=== PATIENT | male | born 1955 | race Caucasian/White ===

== ENCOUNTER 2018-03-03 12:35 | Inpatient (IN) | payer OTHER ==
[2018-03-03] MEDS ORDERED: FUROSEMIDE 40 MG/4 ML VIAL IVP ONE (13:17)
[2018-03-03] MEDS ORDERED: DILTIAZEM 25 MG/5 ML VIAL IVP ONE ×2 (13:17→13:43)
[2018-03-03 13:19] LABS: PLATELET COUNT 262 10^3/uL (150-400)
--- NOTE | 2018-03-03 13:19 | EDPHY ---
H & P Stated Complaint: tachycardia/edema and sob concerned r/t chf Time Seen by Provider: 03/03/18 13:16 HPI/ROS: CHIEF COMPLAINT: Shortness of breath with exertion HISTORY OF PRESENT ILLNESS: The patient is a 62-year-old man who comes to the emergency department with a history of hypertension, asthma, hypothyroidism and cognitive delay. He is sent from Dr. Estes is office where he presented today complaining of increased shortness of breath with mild exertion. Also orthopnea and edema in his lower extremities. Dr. Estes found atrial flutter on EKG and transferred him here. He denies having chest pain. He denies cough or fever. No history of cardiac disease other than hypertension. No lightheadedness or dizziness. REVIEW OF SYSTEMS: Constitutional: denies: chills, fever, recent illness, recent injury EENTM: denies: blurred vision, double vision, nose congestion Respiratory: See HPI denies: cough, shortness of breath Cardiac: See HPI denies: chest pain, irregular heart rate, lightheadedness, palpitations Gastrointestinal/Abdominal: denies: abdominal pain, diarrhea, nausea, vomiting, blood streaked stools Genitourinary: denies: dysuria, frequency, hematuria, pain Musculoskeletal: denies: joint pain, muscle pain Skin: denies: lesions, rash, jaundice, bruising Neurological: denies: headache, numbness, paresthesia, tingling, dizziness, weakness Hematologic/Lymphatic: denies: blood clots, easy bleeding, easy bruising Immunologic/allergic: denies: HIV/AIDS, transplant EXAM: GENERAL: Well-appearing, well-nourished and in no acute distress. HEAD: Atraumatic, normocephalic. EYES: Pupils equal round and reactive to light, extraocular movements intact, sclera anicteric, conjunctiva are normal. ENT: TMs normal, nares patent, oropharynx clear without exudates. Moist mucous membranes. NECK: Normal range of motion, supple without lymphadenopathy or JVD. LUNGS: Breath sounds clear to auscultation bilaterally and equal. No wheezes rales or rhonchi. HEART: Tachycardic and regular at 130 ABDOMEN: Soft, nontender, normoactive bowel sounds. No guarding, no rebound. No masses appreciated. BACK: No CVA tenderness, no spinal tenderness, step-offs or deformities EXTREMITIES: Normal range of motion, no pitting or edema. No clubbing or cyanosis. NEUROLOGICAL: Cranial nerves II through XII grossly intact. Normal speech, normal gait. 5/5 strength, normal movement in all extremities, normal sensation PSYCH: Normal mood, normal affect. SKIN: Warm, dry, normal turgor, no visible rashes or lesions. Source: Patient, Family - Personal History Current Tetanus Diphtheria and Acellular Pertussis (TDAP): Yes - Medical/Surgical History Hx Asthma: No Hx Chronic Respiratory Disease: No Hx Diabetes: No Hx Cardiac Disease: No Hx Renal Disease: No Hx Cirrhosis: No Hx Alcoholism: No Hx HIV/AIDS: No Hx Splenectomy or Spleen Trauma: No Other PMH: htn, hypothyroid, asthma, cognitive delay - Family History Significant Family History: No pertinent family hx - Social History Smoking Status: Never smoked Alcohol Use: Sober Drug Use: None Constitutional: Initial Vital Signs Temperature (C) 36.5 C 03/03/18 12:43 Heart Rate 132 H 03/03/18 12:43 Respiratory Rate 18 03/03/18 12:43 Blood Pressure 130/98 H 03/03/18 12:43 O2 Sat (%) 96 03/03/18 12:43 O2 Delivery Mode Room Air Allergies/Adverse Reactions: No Known Allergies Allergy (Verified 03/03/18 14:34) Home Medications: Medication Instructions Recorded Albuterol [Proventil Inhaler HFA 2 puffs IH Q4 03/03/18 (*)] Cholecalciferol Vit D3 [Vitamin D3 1,000 units PO DAILY 03/03/18 (*)] Furosemide [Lasix 20 MG (*)] 20 mg PO DAILY 03/03/18 Herbals/Supplements -Info Only 1 ea PO DAILY 03/03/18 Levothyroxine [Synthroid 50 mcg 50 mcg PO DAILY06 03/03/18 (*)] Losartan Potassium [Cozaar 50 mg 100 mg PO DAILY 03/03/18 (*)] Potassium Cl [Klor-Con] 10 meq PO DAILY 03/03/18 Simvastatin [Zocor] 40 mg PO HS 03/03/18 Medical Decision Making - Diagnostics EKG Interpretation: An EKG obtained and was read and documented in trace view. Please see trace view for full reading and report. Atrial flutter with a ventricular rate of 128. No acute ischemic changes Imaging Results: Imaging Impressions Chest X-Ray 03/03/18 13:17 Impression: 1. Moderate to marked cardiomegaly with prominence of pulmonary vasculature and dependent edema suggestive of fluid overload/CHF. 2. Poor inspiration with increase in compressive atelectatic changes at the lung bases. Imaging: Discussed imaging studies w/ call manager Radiologist ED Course/Re-evaluation: 1:40 p.m. discussed the case with Dr. Dwaine Álvarez who will admit to the medical service. Patient has been given Lasix and is now on a 2nd dose of diltiazem. Will start a drip and anticoagulation. Differential Diagnosis: Partial list of the Differential diagnosis considered include but were not limited to; CHF, arrhythmia, acute coronary disease and although unlikely based on the history and physical exam, I also considered pneumonia, sepsis. Critical Care Time: Critical care time spent by me, Dr. Srivastava exclusive with this patient was 35 minutes, exclusive of the PA time exclusive of procedures. The organ system that was at risk was cardiovascular and I gave medications, consultation and admission to prevent worsening of the patient's condition - Data Points Laboratory Results: Laboratory Results 03/03/18 12:59 03/03/18 12:59 03/03/1818 03/03/18 13:01 12:59 12:59 WBC 10.90 10^3/uL H 10^3/uL (3.80-9.50) RBC 6.10 10^6/uL 10^6/uL (4.40-6.38) Hgb 18.9 g/dL H g/dL (13.7-17.5) Hct 57.8 % H % (40.0-51.0) MCV 94.8 fL fL (81.5-99.8) MCH 31.0 pg pg (27.9-34.1) MCHC 32.7 g/dL g/dL (32.4-36.7) RDW 13.5 % % (11.5-15.2) Plt Count 262 10^3/uL 10^3/uL (150-400) MPV 11.0 fL fL (8.7-11.7) Neut % (Auto) 65.9 % % (39.3-74.2) Lymph % (Auto) 19.0 % % (15.0-45.0) Sunflower % (Auto) 12.7 % % (4.5-13.0) Eos % (Auto) 1.4 % % (0.6-7.6) Baso % (Auto) 0.6 % % (0.3-1.7) Nucleat RBC Rel Count 0.0 % % (0.0-0.2) Absolute Neuts (auto) 7.20 10^3/uL H 10^3/uL (1.70-6.50) Absolute Lymphs (auto) 2.07 10^3/uL 10^3/uL (1.00-3.00) Absolute Monos (auto) 1.38 10^3/uL H 10^3/uL (0.30-0.80) Absolute Eos (auto) 0.15 10^3/uL 10^3/uL (0.03-0.40) Absolute Basos (auto) 0.06 10^3/uL 10^3/uL (0.02-0.10) Absolute Nucleated RBC 0.00 10^3/uL 10^3/uL (0-0.01) Immature Gran % 0.4 % % (0.0-1.1) Immature Gran # 0.04 10^3/uL 10^3/uL (0.00-0.10) Sodium 141 mEq/L mEq/L (135-145) Potassium 4.3 mEq/L mEq/L (3.3-5.0) Chloride 105 mEq/L mEq/L (97-110) Carbon Dioxide 25 mEq/l mEq/l (22-31) Anion Gap 11 mEq/L mEq/L (8-16) BUN 30 mg/dL H mg/dL (7-23) Creatinine 1.8 mg/dL H mg/dL (0.7-1.3) Estimated GFR 39 Glucose 107 mg/dL H mg/dL (70-100) Calcium 9.5 mg/dL mg/dL (8.5-10.4) POC Troponin I 0.05 ng/mL ng/mL (0.00-0.08) NT-Pro-B Natriuret Pep 4810 pg/mL H pg/mL (0-125) TSH 5.430 uIU/mL H uIU/mL (0.465-4.680) Free T4 1.64 ng/dL ng/dL (0.59-2.19) Medications Given: Discontinued Medications Diltiazem HCl (Cardizem 25 Mg/5 Ml Vial) 10 mg IVP EDNOW ONE Stop: 03/03/18 13:18 Last Admin: 03/03/18 13:34 Dose: 10 mg Diltiazem HCl (Cardizem 25 Mg/5 Ml Vial) 10 mg IVP EDNOW ONE Stop: 03/03/18 13:44 Last Admin: 03/03/18 13:59 Dose: 10 mg Furosemide (Lasix Injection) 40 mg IVP EDNOW ONE Stop: 03/03/18 13:18 Last Admin: 03/03/18 13:30 Dose: 40 mg Point of Care Test Results: Chemistry 03/03/18 13:01 POC Troponin I 0.05 ng/mL ng/mL (0.00-0.08) Departure - Departure Disposition: [facility] Inpatient Acute Clinical Impression: Atrial flutter Qualifiers: Atrial flutter type: typical Qualified Code(s): I48.3 - Typical atrial flutter Congestive heart failure (CHF) Qualifiers: Heart failure type: unspecified Heart failure chronicity: acute Qualified Code( s): I50.9 - Heart failure, unspecified Condition: Fair
--- NOTE | 2018-03-03 13:31 | CPEKG ---
Test Reason : sent in to R/O CHF Blood Pressure : / mmHG Vent. Rate : 128 BPM Atrial Rate : 132 BPM P-R Int : 164 ms QRS Dur : 090 ms QT Int : 320 ms P-R-T Axes : 231 177 079 degrees QTc Int : 467 ms SINUS OR ECTOPIC ATRIAL TACHYCARDIA VENTRICULAR PREMATURE COMPLEX LOW VOLTAGE IN FRONTAL LEADS BORDERLINE R WAVE PROGRESSION, ANTERIOR LEADS BORDERLINE ST DEPRESSION, INFERIOR LEADS Confirmed by Ezra Srivastava ([id number]) on 03/03/2018 1:31:16 PM Referred By: Confirmed By:Ezra Srivastava
[2018-03-03] MEDS ORDERED: DILTIAZEM 125 MG in D5W 125 ML IV ONE (13:48)
[2018-03-03] MEDS ORDERED: ONDANSETRON 4 MG/2 ML VIAL IVP PRN (14:14)
[2018-03-03] MEDS ORDERED: ONDANSETRON DISINTEGRATING 4 MG TAB PO PRN (14:14)
[2018-03-03] MEDS ORDERED: DILTIAZEM 125 MG in D5W 125 ML IV SCH (14:30)
--- NOTE | 2018-03-03 14:53 | GHP ---
[f rep st] HISTORY AND PHYSICAL DATE OF ADMISSION: 03/03/2018 CHIEF COMPLAINT: Shortness of breath. HISTORY OF PRESENT ILLNESS: This is a 62-year-old man who was sent in by Dr. Estes today. He present ed to Dr. Estes's office with complaints of a few weeks to a month of worsening shortness of breath. He has no fever. He has had a persistent cough for years, no chest pain. This is associated with so me lower extremity edema. He has not been able to lie flat for a long time. Shortness of breath is worse with exertion. He has hypertension. He is unsure if he has diabetes, though he is not on any medications for it, never had a stroke. PAST MEDICAL/SURGICAL HISTORY: 1. Hypertension. 2. Hypothyroid. 3. Hyperlipidemia. 4. Cognitive delay. MEDICATIONS: Please see medication reconciliation. ALLERGIES: No known drug allergies. FAMILY HISTORY: His father had a stroke. SOCIAL HISTORY: He lives with his sister. He quit drinking. He does not smoke. REVIEW OF SYSTEMS: A 10-point review of systems is conducted and is negative except per HPI. PHYSICAL EXAM: VITAL SIGNS: Blood pressure 123/97, heart rate has been between 113 to 132, respirat ion rate 18, saturating initially 98% on room air. Temperature 36.5. GENERAL: Mr. Grant is a pl easant man who is resting comfortably in no acute distress. HEENT: Shows him to be normocephalic, a traumatic. CARDIOVASCULAR: Shows him to be tachycardic. There are no murmurs, rubs, or gallops. P ULMONARY: Shows lungs to have diminished breath sounds at the right base. I do not appreciate any r ales. He does have some left-sided wheezes. ABDOMEN: Obese. He is mildly tender to palpation. Th ere is no rebound or guarding. SKIN: Shows no rash. : Exam shows no Kamara. NEUROLOGIC: Shows him to be alert and oriented x3. He is slightly slow to respond. There are no focal deficits. PSYC HIATRIC: Exam shows normal mood and affect. EXTREMITIES: Shows bilateral lower extremity edema to the mid shins, this is 2+. LABS: White count is 10.9, hemoglobin is 18.9, MCV is 94, BUN is 30, creatinine is 1.8. BNP is 4810 . TSH is 5.430, T4 is 1.6. Troponin is negative. DATA: 1. I discussed this with Dr. Srivastava, will admit to med/surg. 2. I personally viewed and interpreted his ECG. This shows atrial flutter. There is slow R-wave pr ogression. There is nothing acutely ischemic. 3. I personally viewed and interpreted his chest x-ray. This shows a right base opacity. He, addit ionally, has cardiomegaly. IMPRESSION AND PLAN: 1. New-onset atrial flutter: His rate has been difficult to control in the ED. We will start him o n a diltiazem drip. We will place him on telemetry to monitor his rate and rhythm. His CHADS 2 Vasc is at least 2, possibly 3, if he does indeed have diabetes. I have discussed anticoagulation with h im, I will start him on Lovenox. If he does not convert on his own in the morning, we will consult C ardiology for possible cardioversion. 2. Acute congestive heart failure: Unsure if this is diastolic due to uncontrolled rate, or systoli c. I do note cardiomegaly on his chest x-ray. Echocardiogram is pending. He received 40 of Lasix i n the ED. I will recheck his creatinine and BUN in the morning before scheduling more Lasix. 3. Acute kidney injury: Creatinine is 1.8, it is normally around 1. We will recheck this with impr ovement in his hemodynamics. 4. Hypothyroidism: TSH is normal. We will continue Synthroid. 5. Hypertension: He is normotensive here. We will hold his losartan in the setting of acute kidney injury. 6. Hyperlipidemia: Statin. /[id number]/MODL
--- NOTE | 2018-03-03 15:37 | ECHO ---
[email or web address] [address] Main: [phone] Fax: Transthoracic Echocardiogram Name: ARLYN TONY MR#: [id number] Study Date: 03/03/2018 Study Time: 02:48 PM Date of : 1955 Age: 62 year(s) Height: 180.3 cm (71 in.) Weight: 117.94 kg (260 lb.) BSA: 2.36 m2 Gender: Male Examination: Echo Indication: a-flutter Image Quality: Technically Difficult Contrast: Requested by: Dwaine Álvarez BP: 142 mmHg/87 mmHg Heart Rate: Rhythm: Indication: a-flutter Procedure Staff Form Setter Supervisor: Jennifer Kaba [facility] Reading Physician: Godwin Lyons MD Requesting Provider: Conclusions: Dilated left ventricle. Severely reduced systolic LV function. EF is 18 %. Severe global hypokinesis. Mildly dilated right ventricle. Moderately reduced RV function. The left atrium is moderately dilated. The right atrium is moderately dilated. There is mild thickening of the mitral valve leaflets. Moderate to severe mitral regurgitation. The aortic valve is tri-leaflet. There is no significant aortic valve regurgitation. No aortic valve stenosis is present. Right ventricular systolic pressure measures 54mmHg. No old studies for comparison. Measurements: Chambers Valvular Assessment AV/MV Valvular Assessment TV/PV Normal Normal Normal Name Value Range Name Value Range Name Value Range Ao Mitzy (MM): 3.3 cm (2.2 cm-3.7 AV Vmax: 1.15 m/s (1 m/s-1.7 TR Vmax: 3.33 mm/s ( - ) cm) m/s) TR PGmax: 44 mmHg ( - ) IVSd (2D): 0.7 cm (0.6 cm-1.1 AV maxP mmHg ( - ) syst. PAP: 54 mmHg ( - ) cm) MV E Vmax: 1.13 m/s ( - ) LVDd (2D): 6.2 cm (4.2 cm-5.9 MV A Vmax: 0.37 m/s ( - ) cm) MV E/A: 3.05 ( - ) LVDs (2D): 5.7 cm (2.1 cm-4 MV meanP mmHg ( - ) cm) MVA (Vmax): 3.3 m/s ( - ) LVPWd (2D): 1.0 cm (0.6 cm-1 cm) Patient: ARLYN TONY Study Date: 03/03/2018 Page 1 of 2 02:48 PM LVOTd 2.1 cm 2.1 cm mm LVEF (BP): 18 % (>=55 %) RVDd(2D): 4.0 cm (1.9 cm-3.8 cmmm) Continued Measurements: Chambers Valvular Assessment AV/MV Valvular Assessment TV/PV Name Value Name Value Name Value LADs Lon.7 cm MV Annulus: 3.3 cm CVP (est.): 10 mmHg LA Area: 28.3 cm2 MV DecTime: 60 m/s LA Volume: 106 ml MV E' Septal: 0.03 m/s LA Volume Index: 44.9 ml/m2 MV E/E' Septal: 44.70 TAPSE: 0.9 cm MV VTI: 7.48 cm RA Area: 31.7 cm2 MR ERO: 0.260 cm2 MR PISA radius: 7 mm MR Reg. Volume: 31 ml MR Reg. Fraction: 48 % Additional Vessels Name Value Ao Ascendin.7 cm Findings: Left Ventricle: Dilated left ventricle. No LV hypertrophy. Severely reduced systolic LV function. EF is 18 %. Severe global hypokinesis. Unable to assess diastolic dysfunction. Right Ventricle: Mildly dilated right ventricle. Moderately reduced RV function. Left Atrium: The left atrium is moderately dilated. Right Atrium: The right atrium is moderately dilated. Mitral Valve: There is mild thickening of the mitral valve leaflets. Moderate to severe mitral regurgitation. Aortic Valve: The aortic valve is tri-leaflet. There is no significant aortic valve regurgitation. No aortic valve stenosis is present. Tricuspid Valve: The tricuspid valve appears normal. Right ventricular systolic pressure measures 54mmHg. The pulmonary artery pressure is moderately increased. Moderate to severe tricuspid valve regurgitation. Pulmonic Valve: Pulmonary valve not well visualized. Aorta: Normal size aortic root measuring 3.3 cm. Normal size ascending aorta measuring 3.7 cm. IVC: The IVC is dilated. Pericardium: Small pericardial effusion. (No Signature Object) Patient: ARLYN TONY Study Date: 03/03/2018 Page 2 of 2 02:48 PM [id number]
--- NOTE | 2018-03-03 16:00 | ASMTCASEMG ---
Living Arrangements What is your living Answers: With Other Relative(s) arrangement? Who do you live with? Type Of Residence What kind of residence do Answers: House you live in? Discharge Plan Comments Coordination Status Comments Notes: Pt is a 62 y/o man admitted for shortness of breath. Pt will most likely d/c independent when medically stable. OT has been ordered. CM available for d/c needs. Plan: Independent Date Signed: 03/03/2018 03:59 PM Electronically Signed By:BEVERLY Matta
[2018-03-03] MEDS: ATORVASTATIN CALCIUM 20 MG TAB PO SCH (20:57)
[2018-03-03] MEDS: ENOXAPARIN 120 MG/0.8 ML SYR SC SCH (20:57)
[2018-03-03] MEDS: ALBUTEROL 60 PUFFS/8 GM MDI IH SCH (21:40)
[2018-03-04] MEDS ORDERED: DILTIAZEM HCL/D5W 125 ML IV SCH (00:30)
[2018-03-04] MEDS: ALBUTEROL 60 PUFFS/8 GM MDI IH SCH ×6 (04:05→20:30)
[2018-03-04 05:27] LABS: PLATELET COUNT 196 10^3/uL (150-400)
[2018-03-04] MEDS: LEVOTHYROXINE 50 MCG TAB PO SCH (06:20)
[2018-03-04] MEDS ORDERED: FUROSEMIDE 40 MG/4 ML VIAL IVP ONE (08:32)
--- NOTE | 2018-03-04 08:37 | HOSPPROG ---
Hospitalist Progress Note Assessment/Plan: # a-flutter, new onset - plan on OLIVERIO/DCCV per cards - cont lovenox, dilt gtt for now # acute decompensated systolic CHF - EF 18% - etiology: tachy mediated vs valvular vs less likely ischemic - cont aggressive diuresis - will need to start BB # mod-severe MR - will need to re-eval when more euvolemic # MELO - better with improved rate control and diuresis - follow daily for now # developmental delay - sister Fátima guardian/POA # hypothyroid - TSH ok Subjective: breathing feels better; seen with his three sisters today Objective: Vital Signs Temp Pulse Resp BP Pulse Ox 36.4 C 85 19 111/94 H 92 03/04/18 07:33 03/04/18 07:33 03/04/18 07:33 03/04/18 07:33 03/04/18 07:33 Laboratory Results 03/04/18 04:53 03/04/18 04:53 03/03/18 03/04/18 03/05/18 05:59 05:59 05:59 Intake Total 1111.6 Output Total 1 Balance 1110.6 discussed with Tyler bucio personally reviewed - Physical Exam Constitutional: no apparent distress, appears nourished Cardiovascular: no murmur, rub, or gallop, irregularly irregular Respiratory: no respiratory distress, no rales or rhonchi, reduced air movement (bilat bases) Gastrointestinal: soft, non-tender abdomen, no palpable masses, No guarding, No rebound, No distension ICD10 Worksheet Patient Problems: Problems Problem Status Onset Atrial flutter Acute Congestive heart failure (CHF) Acute
[2018-03-04] MEDS ORDERED: Herbals/Supplements -Info Only PO SCH (09:00)
[2018-03-04] MEDS: ENOXAPARIN 120 MG/0.8 ML SYR SC SCH ×2 (09:50→20:50)
[2018-03-04] MEDS: CHOLECALCIFEROL VIT D3 1,000 UNITS TAB PO SCH (09:50)
--- NOTE | 2018-03-04 12:32 | GCON ---
[f rep st] CONSULTATION DATE OF CONSULTATION: 03/04/2018 CHIEF COMPLAINT: We have been asked by Dr. Álvarez to evaluate Mr. Grant with new onset atrial fl utter and cardiomyopathy. HISTORY OF PRESENT ILLNESS: Mr. Grant is a 62-year-old gentleman who presented to the hospital on 03/03/2018 with atrial flutter and rapid ventricular response. He had an echocardiogram performed, demonstrating severely reduced left ventricular systolic function with global hypokinesis and an sharri mated ejection fraction of 20%. We were consulted to help in the further management of this patient. The patient was in his usual state of health until 1-2 months prior to admission, when he began to experience symptoms of progressive dyspnea on exertion. The patient remains mildly active, walking a nd riding a bicycle. He typically denies symptoms with this activity. However more recently, he fou nd he was really short of breath and could not complete his usual activities. In the days prior to a dmission, patient also began to experience symptoms of orthopnea and PND. When his symptoms did not improve, he went to Dr. Estes's office for further evaluation. He was found to be in atrial flutter w ith rapid ventricular response, and was sent to the hospital for further evaluation. The patient den ies a history of palpitations, syncope or presyncope. There is no history of chest pain. PAST MEDICAL HISTORY: 1. Hypertension. 2. Hypothyroidism. 3. Hyperlipidemia. 4. Cognitive delay. MEDICATIONS: Please see medicine reconciliation form. ALLERGIES: No known drug allergies. SOCIAL HISTORY: Patient lives with his sister, his other sister is his power of senior attorney. He does n ot smoke. He does not consume alcohol. FAMILY HISTORY: Notable for a stroke in his father. REVIEW OF SYSTEMS: 10-point review of systems is negative, except as noted in HPI. PHYSICAL EXAM: GENERAL: The patient is sitting comfortably in bed. He does not appear to be in acu te distress. VITAL SIGNS: Temperature is afebrile. Pulse is 85, blood pressure 111/94, respiratory rate 19, SaO2 92% on room air. HEENT: Normocephalic, atraumatic. Extraocular muscles intact. NEC K: Positive JVD. No bruits auscultated. LUNGS: Crackles at the bases bilaterally. CARDIOVASCULAR : Irregular rate and rhythm. S1, S2. Grade 3/6 holosystolic murmur is noted at the left sternal latisha rder. ABDOMEN: Obese, nontender. Normoactive bowel sounds. EXTREMITIES: Mild bilateral lower ext remity edema. SKIN: No evidence of rash. NEURO: Patient is awake, alert, and oriented x3. LABORATORY: White blood cell count is 8.29, hemoglobin 16.0, hematocrit 48.6, platelet count 196. S odium 139, potassium 3.8, chloride 109, CO2 20, BUN 30, creatinine 1.5. Troponin 0.046-0.053. BNP is elevated at 4810. TSH is 5.43. ASSESSMENT AND PLAN: Mr. Grant is a 62-year-old gentleman with: 1. Atrial flutter. The patient presents with a new diagnosis of atrial flutter with rapid ventricul ar response. The onset is not entirely clear, as patient is relatively asymptomatic with respect to palpitations. The atrial flutter may be secondary to his cardiomyopathy and mitral regurgitation, or it may be causing his cardiomyopathy and mitral regurgitation. At this time, he is reasonably rate controlled with diltiazem and anticoagulated with Lovenox. We will plan on performing OLIVERIO cardiovers ion to correct this condition. 2. Mitral regurgitation. Patient has mild thickening of his mitral valve leaflets, otherwise his mi tral valve appears to function normally. Suspect the mitral regurgitation may be secondary to his ca rdiomyopathy. Will plan on further evaluating his condition with a transesophageal echocardiogram at the time of OLIVERIO cardioversion. 3. Cardiomyopathy. The patient presents with a new diagnosis of cardiomyopathy. His ejection fract ion is approximately 20%. Potential precipitating factors would include moderate to severe mitral re gurgitation, atrial flutter with rapid ventricular response and, less likely, coronary artery disease . At this time, patient would be a relatively high risk for cardiac catheterization, given renal ins ufficiency. We will plan on addressing the atrial flutter with rapid ventricular response and the mi tral regurgitation as noted above. If EF does not improve with management of these conditions, would consider cardiac catheterization once his hemodynamics are more stabilized. /[id number]/MODL
[2018-03-04] MEDS ORDERED: PROPOFOL 200 MG/20 ML VIAL ONE (13:21)
--- NOTE | 2018-03-04 14:02 | PDANEPAE ---
ANE History of Present Illness AF for OLIVERIO/CV ANE Past Medical History - Cardiovascular History Hx Hypertension: Yes Hx Arrhythmias: Yes Hx Chest Pain: No Hx Coronary Artery / Peripheral Vascular Disease: No Hx CHF / Valvular Disease: No Hx Palpitations: Yes - Pulmonary History Hx COPD: No Hx Asthma/Reactive Airway Disease: Yes Hx Recent Upper Respiratory Infection: No Hx Oxygen in Use at Home: No Hx Sleep Apnea: No - Endocrine History Hx Diabetes: No Obesity: yes - Chronic Pain History Chronic Pain: No ANE Review of Systems Review of Systems: - Exercise capacity Exercise capacity: <4 METS ANE Patient History - Allergies Allergies/Adverse Reactions: No Known Allergies Allergy (Verified 03/03/18 14:34) - Home Medications Home medications: home medication list seen and reviewed Home Medications: Albuterol [Proventil Inhaler HFA (*)] 2 puffs IH Q4 03/03/18 [Last Taken ] Cholecalciferol Vit D3 [Vitamin D3 (*)] 1,000 units PO DAILY 03/03/18 [Last Taken 03/03/18] Furosemide [Lasix 20 MG (*)] 20 mg PO DAILY 03/03/18 [Last Taken 03/03/18] Herbals/Supplements -Info Only 1 ea PO DAILY 03/03/18 [Last Taken Unknown] Levothyroxine [Synthroid 50 mcg (*)] 50 mcg PO DAILY06 03/03/18 [Last Taken ] Losartan Potassium [Cozaar 50 mg (*)] 100 mg PO DAILY 03/03/18 [Last Taken 03/03] Potassium Cl [Klor-Con] 10 meq PO DAILY 03/03/18 [Last Taken 03/03/18] Simvastatin [Zocor] 40 mg PO HS 03/03/18 [Last Taken 03/02/18] - Smoking Hx Smoking Status: Never smoked - Alcohol Use Alcohol Use: Sober ANE Labs/Vital Signs - Labs Result Diagrams: 03/04/18 04:53 03/04/18 04:53 - Vital Signs Blood Pressure: 111/85 Heart Rate: 102 Respiratory Rate: 15 O2 Sat (%): 91 Height: 180.34 cm Weight: 124.284 kg ANE Physical Exam - Airway Neck exam: FROM, increased neck circumference Mallampati Score: Class 2 Mouth exam: poor dentition - Pulmonary Pulmonary: no respiratory distress - Cardiovascular Cardiovascular: irregularly irregular - ASA Status ASA Status: III ANE Anesthesia Plan Anesthesia Plan: GA with mask Urgent/Emergent Case: Anes eval completed preop but documented later for safe timely pt care
--- NOTE | 2018-03-04 14:02 | POSTANESTH ---
Post Anesthetic Evaluation Cardiovascular Status: Normal, Stable Respiratory Status: Normal, Stable Level of Consciousness/Mental Status: Can Participate in Eval, Alert and Oriented Pain Control: Adequate, Prn Tx Ordered Nausea/Vomiting Control: Adequate, Prn Tx Ordered Complications Possibly Related to Anesthesia: None Noted
[2018-03-04] MEDS ORDERED: MAGNESIUM HYDROXIDE 30 ML UDCUP PO PRN (17:37)
[2018-03-04] MEDS ORDERED: LACTULOSE 20 GM/30 ML UDCUP PO PRN (17:37)
[2018-03-04] MEDS ORDERED: BISACODYL 10 MG SUPP PR PRN (17:37)
[2018-03-04] MEDS ORDERED: POLYETHYLENE GLYCOL 3350 17 GM PKT PO PRN (17:37)
[2018-03-04] MEDS: SENNOSIDES/DOCUSATE SODIUM TAB PO SCH ×2 (18:21→20:50)
[2018-03-04] MEDS ORDERED: CANN-EASE 2 GM TUBE TP PRN (20:39)
[2018-03-04] MEDS: ATORVASTATIN CALCIUM 20 MG TAB PO SCH (20:50)
--- NOTE | 2018-03-04 21:15 | CPEKG ---
Test Reason : Blood Pressure : / mmHG Vent. Rate : 079 BPM Atrial Rate : 079 BPM P-R Int : 219 ms QRS Dur : 103 ms QT Int : 436 ms P-R-T Axes : 033 035 169 degrees QTc Int : 500 ms Sinus rhythm PVC First degree AV block. IVCD Low voltage, extremity leads Consider anterior infarct Nonspecific T abnormalities, lateral leads Confirmed by Frank Holden ([id number]) on 03/04/2018 9:14:34 PM Referred By: Confirmed By:Frank Holden
[2018-03-04] MEDS: SODIUM CL NASAL 45 ML BTL EACHNARE PRN (22:01)
[2018-03-05] MEDS: ALBUTEROL 60 PUFFS/8 GM MDI IH SCH ×6 (01:05→21:00)
[2018-03-05] MEDS: LEVOTHYROXINE 50 MCG TAB PO SCH (05:52)
[2018-03-05] MEDS: SENNOSIDES/DOCUSATE SODIUM TAB PO SCH ×2 (08:51→21:25)
[2018-03-05] MEDS: ENOXAPARIN 120 MG/0.8 ML SYR SC SCH (08:52)
[2018-03-05] MEDS: CHOLECALCIFEROL VIT D3 1,000 UNITS TAB PO SCH (08:52)
--- NOTE | 2018-03-05 10:27 | PDMN ---
Medical Necessity Medical necessity: Change to IP, as of 03/03/18, per MD & MCG M-190; los >2 mn for ongoing management of acute CHF with cardiomegaly, new-onset a-flutter, worsening shortness of breath & acute kidney injury; requiring further monitoring, aggressive diuresis/med management, IV Diltiazem & Cardiology consult w/possible cardioversion; hx developmental delay, HTN; per H&P & order
--- NOTE | 2018-03-05 12:07 | ASMTCMCOM ---
CM Note CM Note Notes: 03/05/2018 Case Management Note Met w/pt during rounds this morning. Pt lives with his sister Jackie. Sister Fátima lives nearby and is MDPOA. Fátima [phone] Jackie [phone] Natacha [phone]. There are no case management d/c needs identified. Pt has strong family support and is ambulating without difficulty. Case Management d/c poc: home with sister Jackie with follow up as directed. Case Management available if needs change. Date Signed: 03/05/2018 12:06 PM Electronically Signed By:Bing Lees RN
--- NOTE | 2018-03-05 12:35 | HOSPPROG ---
Hospitalist Progress Note Assessment/Plan: # a-flutter, new onset, s/p OLIVERIO/CV, now in sinus, on lovenox - transition from lovenox to eliquis tonight - adding metoprolol for rate control # acute decompensated systolic CHF - EF 18%. Still a bit SOB today. Etiology: tachy mediated vs valvular vs less likely ischemic - continue diuresis, change to oral lasix at 40 mg daily - follow I&O's, daily weights - add metoprolol 12.5 bid, transition to Toprol XL tomorrow if tolerates - consider addition of wilmer if renal function improves # mod-severe MR - plan to re-eval when more euvolemic # MELO - better with improved rate control and diuresis - follow daily # developmental delay - sister Fátima guardian/POA # hypothyroid - TSH ok # dispo - cont inpt Subjective: Pt doing fine. He is very pleased that his appetite is better. Denies CP, still SOB per RN and with persistent LE edema. Sister at bedside. Objective: Vital Signs Temp Pulse Resp BP Pulse Ox 36.6 C 102 H 18 138/98 H 93 03/05/18 11:46 03/05/18 11:46 03/05/18 11:46 03/05/18 11:46 03/05/18 11:46 Laboratory Results 03/04/18 04:53 03/05/18 04:26 03/04/18 03/05/18 03/06/18 05:59 05:59 05:59 Intake Total 1111.6 1390 Output Total 1 Balance 1110.6 1390 - Physical Exam Constitutional: no apparent distress Eyes: PERRL Ears, Nose, Mouth, Throat: moist mucous membranes Cardiovascular: regular rate and rhythym Respiratory: no respiratory distress, inspiratory crackles Gastrointestinal: normoactive bowel sounds, soft, non-tender abdomen Skin: warm, other (2+ B/L LE edema) Musculoskeletal: full muscle strength Neurologic: AAOx3 Psychiatric: interacting appropriately ICD10 Worksheet Patient Problems: Problems Problem Status Onset Atrial flutter Acute Congestive heart failure (CHF) Acute
[2018-03-05] MEDS: METOPROLOL TARTRATE 25 MG TAB PO SCH ×2 (13:37→21:23)
[2018-03-05] MEDS: FUROSEMIDE 40 MG TAB PO SCH (13:37)
--- NOTE | 2018-03-05 18:34 | SOAPPROG ---
KATHE Progress Note Assessment/Plan: 1. A-flutter - S/P DCCV on 03/04. --> Continue metoprolol and eliquis 2. MR - Pt has moderate to severe MR. Suspect functional, however, there is a component degenerative changes. --> Re-evalaute with echocardiogram in the am 3. CM - Pt presents with a new cm. The etiology is not entirely clear. Suspect related to tachyarrhythmia, however, MR and ischemia possible. --> Echocardiogram in am to evaluate LVEF 4. CHF - Symptoms improved with DCCV and diuresis. However, Pt not back to baseline Subjective: No chest pain + edema limited ambulation + dyspnea No PND Objective: Vital Signs Temp Pulse Resp BP Pulse Ox 36.6 C 93 17 112/81 H 96 03/05/18 16:00 03/05/18 17:56 03/05/18 17:56 03/05/18 16:00 03/05/18 17:56 Laboratory Results 03/04/18 04:53 03/05/18 04:26 03/04/18 03/05/18 03/06/18 05:59 05:59 05:59 Intake Total 1111.6 1390 850 Output Total 1 Balance 1110.6 1390 850 Physical Exam - Physical Exam General Appearance: alert, no apparent distress Respiratory: lungs clear Cardiac/Chest: regular rate, rhythm, systolic murmur Abdomen: non-tender, soft Skin: normal color Extremities: pedal edema ICD10 Worksheet Patient Problems: Problems Problem Status Onset Atrial flutter Acute Congestive heart failure (CHF) Acute
[2018-03-05] MEDS: APIXABAN 5 MG TAB PO SCH (21:23)
[2018-03-05] MEDS: ATORVASTATIN CALCIUM 20 MG TAB PO SCH (21:23)
[2018-03-06] MEDS: ALBUTEROL 60 PUFFS/8 GM MDI IH SCH ×6 (02:00→20:54)
[2018-03-06] MEDS: LEVOTHYROXINE 50 MCG TAB PO SCH (05:07)
[2018-03-06] MEDS: FUROSEMIDE 40 MG TAB PO SCH (08:27)
[2018-03-06] MEDS: SENNOSIDES/DOCUSATE SODIUM TAB PO SCH ×2 (08:27→20:20)
[2018-03-06] MEDS: METOPROLOL TARTRATE 25 MG TAB PO SCH ×2 (08:27→20:18)
[2018-03-06] MEDS: CHOLECALCIFEROL VIT D3 1,000 UNITS TAB PO SCH (08:27)
[2018-03-06] MEDS: APIXABAN 5 MG TAB PO SCH ×2 (08:27→20:18)
--- NOTE | 2018-03-06 11:22 | ECHO ---
[email or web address] [address] Main: [phone] Fax: Transthoracic Echocardiogram Name: ARLYN TONY MR#: [id number] Study Date: 03/06/2018 Study Time: 09:42 AM Date of : 1955 Age: 62 year(s) Height: 180.3 cm (71 in.) Weight: 124.74 kg (275 lb.) BSA: 2.41 m2 Gender: Male Examination: Limited Echo Indication: MR Image Quality: Contrast: Requested by: Godwin York BP: 120 mmHg/60 mmHg Heart Rate: Rhythm: Indication: MR Procedure Staff Access Tech: Ced Hernandez RDCS Reading Physician: Jose Sotomayor MD Requesting Provider: Conclusions: Severely reduced systolic LV function. The ejection fraction is visually estimated to be 15 %. Moderately reduced RV function. Moderate to severe mitral regurgitation. This is a limited echo to eval LV Function. The EF is estimated at 10-15%. Compared to echo of 03/04/2018, today's echo is unchanged. Measurements: Chambers Valvular Assessment AV/MV Valvular Assessment TV/PV Normal Normal Normal Name Value Range Name Value Range Name Value Range IVSd (2D): 0.8 cm (0.6 cm-1.1 MV meanP mmHg ( - ) TR Vmax: 3.54 mm/s ( - ) cm) TR PGmax: 50 mmHg ( - ) LVDd (2D): 5.9 cm (4.2 cm-5.9 syst. PAP: 55 mmHg ( - ) cm) LVDs (2D): 5.6 cm (2.1 cm-4 cm) LVPWd (2D): 1.2 cm (0.6 cm-1 cm) LVEF (MM): 18 (>=55 %) Visual EF: 15 % EF Range: 10-15 % Continued Measurements: Valvular Assessment AV/MV Valvular Assessment TV/PV Name Value Name Value MV VTI: 33.40 cm CVP (est.): 5 mmHg MR ERO: 0.170 cm2 MR PISA radius: 9 mm Patient: ARLYN CURTISN: [id number] Study Date: 03/06/2018 Page 1 of 2 09:42 AM MR Reg. Volume: 20 ml Findings: Left Ventricle: Severely reduced systolic LV function. The ejection fraction is estimated to be 10-15 %. The ejection fraction is visually estimated to be 15 %. Right Ventricle: Moderately reduced RV function. Right Atrium: The right atrium is normal in size. Mitral Valve: Moderate to severe mitral regurgitation. Exam Comments: This is a limited echo to eval LV Function. The EF is estimated at 10-15%. (No Signature Object) Patient: ARLYN TONY Study Date: 03/06/2018 Page 2 of 2 09:42 AM [id number]
--- NOTE | 2018-03-06 11:50 | HOSPPROG ---
Hospitalist Progress Note Assessment/Plan: # a-flutter, new onset, s/p OLIVERIO/CV, now in sinus -metoprolol for rate control, change to Toprol XL tomorrow -eliquis for cva prevention # acute decompensated systolic CHF - EF 10-15% by echo yest. Etiology: tachy mediated vs valvular vs less likely ischemic. Wt unchanged. Still with LE edema and SOB. - return to IV Lasix - follow I&O's, daily weights - cont BB - consider addition of wilmer if renal function improves # mod-severe MR - rpt echo unchanged # MELO - better with improved rate control and diuresis, Cr 1.8-->1.4 - follow daily with diuresis # developmental delay - sister Fátima roaan/POA # hypothyroid - TSH ok # dispo - cont inpt, ADD uncertain Subjective: Pt doing ok, still SOB with activity. Denies CP. Continues to have LE edema. Objective: Vital Signs Temp Pulse Resp BP Pulse Ox 36.6 C 84 12 122/91 H 97 03/06/18 07:53 03/06/18 07:53 03/06/18 07:53 03/06/18 07:53 03/06/18 07:53 Laboratory Results 03/04/18 04:53 03/06/18 03:52 03/05/18 03/06/18 03/07/18 05:59 05:59 05:59 Intake Total 1390 2750 Balance 1390 2750 - Physical Exam Constitutional: no apparent distress Eyes: PERRL Ears, Nose, Mouth, Throat: moist mucous membranes Cardiovascular: regular rate and rhythym Respiratory: no respiratory distress, inspiratory crackles Gastrointestinal: normoactive bowel sounds, soft, non-tender abdomen Skin: warm Musculoskeletal: full muscle strength, other (2+ b/l LE pitting edema) Neurologic: AAOx3 Psychiatric: anxious, poor insight ICD10 Worksheet Patient Problems: Problems Problem Status Onset Atrial flutter Acute Congestive heart failure (CHF) Acute
[2018-03-06] MEDS: POTASSIUM CL 20 MEQ TAB PO SCH (13:39)
[2018-03-06] MEDS: FUROSEMIDE 40 MG/4 ML VIAL IVP SCH (13:39)
[2018-03-06] MEDS ORDERED: FUROSEMIDE 40 MG/4 ML VIAL IVP ONE (16:30)
--- NOTE | 2018-03-06 16:35 | SOAPPROG ---
KATHE Progress Note Assessment/Plan: 1. A-flutter - S/P DCCV on 03/04. --> Continue metoprolol and eliquis 2. MR - Pt has moderate to severe MR. Suspect functional, however, there is a component degenerative changes. No change on echocardiogram performed on . --> Re-evaluate in approximately 1 month 3. CM - Pt presents with a new cm. The etiology is not entirely clear. Suspect related to tachyarrhythmia, however, MR and ischemia possible. --> change metoprolol tartrate to succinate at DC. --> Consider losartan 25 mg daily if cr stable in am. 4. CHF - Symptoms improved with DCCV and diuresis. However, Pt continues to have BAKER and orthopnea. Pt remains volume up. --> Lasix 40 mg iv x 1 now. --> Goal diuresis 1 - 2 kg over 24 hrs. 03/06/18 16:31 Subjective: No chest pain + baker +orthopnea last pm Objective: Vital Signs Temp Pulse Resp BP Pulse Ox 36.6 C 95 19 124/80 H 97 03/06/18 15:33 03/06/18 15:33 03/06/18 15:33 03/06/18 15:33 03/06/18 15:33 Laboratory Results 03/04/18 04:53 03/06/18 03:52 03/05/18 03/06/18 03/07/18 05:59 05:59 05:59 Intake Total 1390 2750 680 Balance 1390 2750 680 Physical Exam - Physical Exam General Appearance: alert, no apparent distress Respiratory: lungs clear Cardiac/Chest: regular rate, rhythm, systolic murmur Abdomen: non-tender, soft Extremities: pedal edema Neuro/Psych: alert ICD10 Worksheet Patient Problems: Problems Problem Status Onset Atrial flutter Acute Congestive heart failure (CHF) Acute
[2018-03-06] MEDS: ATORVASTATIN CALCIUM 20 MG TAB PO SCH (20:18)
[2018-03-07] MEDS: ALBUTEROL 60 PUFFS/8 GM MDI IH SCH ×6 (04:22→21:10)
[2018-03-07] MEDS: LEVOTHYROXINE 50 MCG TAB PO SCH (04:29)
[2018-03-07] MEDS: CHOLECALCIFEROL VIT D3 1,000 UNITS TAB PO SCH (08:48)
[2018-03-07] MEDS: FUROSEMIDE 40 MG/4 ML VIAL IVP SCH (08:48)
[2018-03-07] MEDS: POTASSIUM CL 20 MEQ TAB PO SCH (08:48)
[2018-03-07] MEDS: SENNOSIDES/DOCUSATE SODIUM TAB PO SCH ×2 (08:48→21:31)
[2018-03-07] MEDS ORDERED: METOPROLOL SUCCINATE XR 25 MG TAB PO SCH (09:00)
[2018-03-07] MEDS: APIXABAN 5 MG TAB PO SCH (09:26)
[2018-03-07] MEDS ORDERED: POTASSIUM CL 10 MEQ TAB PO ONE (10:01)
[2018-03-07] MEDS ORDERED: METOPROLOL SUCCINATE XR 25 MG TAB PO ONE (10:03)
[2018-03-07] MEDS: ENOXAPARIN 120 MG/0.8 ML SYR SC SCH ×2 (10:18→21:31)
--- NOTE | 2018-03-07 10:46 | PDCARPN ---
Cardiology Progress Note Chief Complaint: Patient reports dyspnea on exertion. Feels mild improvement. Assessment/Plan: Assessment: 62-year-old male with significant past history of obseity, hypertension, hypothyroidism, hyperlipidemia, developmentally delayed. Admitted for shortness of breath. Noted to be a flutter with RVR, on admission. ProBNP 4810 with TSH of 5.430 and initial troponin of 0.046. Initial creatinine of 1.8 Echocardiogram done on 03/03/2018 noting severely reduced LV systolic function, EF of 18%. Global hypokinesis, mildly dilated RV, moderately reduced RV function, LA and RA were both moderately dilated, moderate to severe MR, RVSP estimated at 54 mm Hg. Did undergo OLIVERIO cardioversion on 03/04/[address] Lyons and started on anticoagulation of Eliquis. limited echocardiogram on continue to show severely reduced LV systolic function, it EF of 15%, moderately reduced RV function, moderate to severe MR. Patient has been IV diuresed. He has been started on beta-blockers, and anticoagulation of Eliquis. ACEi or ARB has not been started due to acute kidney injury. 03/07/2018: Patinent had a 15 beat run of NSVT, asymptomatic. Reports no chest pressure or pain. A.m. Labs showing potassium at 4.2, creatinine 1.5, magnesium 2.1. Patient reports SOB has improved. Weight down 0.3 kilos from yesterday. O>I. Plan: 1. NSVT: 1st of in noted this morning. Patient asymptomatic. Potassium and magnesium within normal limits. new onset of cardiomyopathy with EF of 15% off recent echocardiogram. Patient with multiple cardiac risk factors that include age, sex, hypertension and hyperlipidemia. Discussed with Dr Harris. Patient should be further eval for possible cardiac ischemia by cardiac catheterization. Have discussed both with patient and his sister, Fátima ( Patient MPOA), who are in agreement. Unfortunately, patient is on Eliquis, will discontinue at this time, and plan on heart catheterization either tomorrow or Friday. Increased patient's metoprolol succinate to 50 mg p.o. Q.day, will attempt to keep potassium closer to 4.5 and Mag > 2.0. 2. A-flutter: cardioverted on 03/04/[address] Lyons. Maintaining sinus rhythm. Beta-lizzie as above. DC did Eliquis, and started on Lovenox for bridge, due to recent cardioversion higher risk of thrombotic event within the 1st 30 days post cardioversion. 3. New cardiomyopathy: EF of 15%. Possible due to tacharrhythmia or MR, but ischemia will be evaluated with coronary angiogram. Patient on metoprolol succinate as above. Has not been started on ACEi or ARB due to MELO, Consider to start when renal function is more stable, post catheterization. 4. Acute systolic congestive heart: Patient reporting improvement in shortness of breath. Continues to have BAKER, continue IV diuresis. Consideration RHC with LHC 5. MR: Mod to severe on echo, potentially will improve with medical therapy. Plan on re-evaluating in 1 months time. 6. MELO: improvement since first hospitalization, today at 1.5, there is concerned with heart catheterization, and risks of procedure were explained to both patient and his sister. They verbalize understanding and are wanting to proceed. Will plan on hold Lasix the AM of procedures. Monitor closely New Patient to me, Chart review done 03/07/18 10:41 Subjective: He denies of any chest pressure or pain. Reports continuation of dyspnea on exertion. Denies of any palpitations, lightheadedness, near-syncope or syncopal events. Reviewed/Discussed With: family (Fátima (patient sister REESE)), hospitalist (Dr Amaya), other (Dr Harris) Objective: Vital Signs (8 Hrs) Temp Pulse Resp BP Pulse Ox 03/07/18 10:09 89 23 H 93 03/07/18 08:48 77 126/83 H 03/07/18 06:54 35.8 C L 73 20 113/73 94 03/07/18 04:57 36.6 C 109 H 16 122/93 H 97 Intake/Output (24 Hrs) 03/06/18 03/07/18 03/08/18 05:59 05:59 05:59 Intake Total 2750 1680 Output Total 500 Balance 2750 1180 Intake: Oral (ml) 2750 1680 IV Intake (ml) 0 Output: Urine (ml) 500 Urinal 500 Other: Weight 124.874 kg 124.511 kg Number of Voids Incontinence 1 Toilet 1 5 Urinal 1 Number of Stools Incontinence 1 Toilet 1 2 Result Diagrams: 03/04/18 04:53 08/25/18 04:46 - Physical Exam Constitutional: no apparent distress, obese Ears, Nose, Mouth, Throat: moist mucous membranes Cardiovascular: regular rate and rhythm, systolic murmur (2/6 left sternal border), jugular vein distention (5-6 cm above sternal notch at a 45 degree angle), pulses symmetric bilat, No carotid bruit Peripheral Pulses: 1+: dorsalis-pedis (R), dorsalis-pedis (L), 2+: carotid (R), carotid (L) Respiratory: other (Lungs are diminished in bases, no rhonchi, or wheezing noted.) Gastrointestinal: normoactive bowel sounds Skin: no rashes, warm, No no edema (Trace pedal edema) Neurologic: AAOx3 Psychiatric: cooperative, interactive, following commands ICD10 Worksheet Patient Problems: Problems Problem Status Onset Atrial flutter Acute Congestive heart failure (CHF) Acute
[2018-03-07] MEDS ORDERED: TEMAZEPAM 15 MG CAP PO PRN (14:19)
[2018-03-07] MEDS ORDERED: NITROGLYCERIN 0.4 MG BTL SL PRN (14:19)
--- NOTE | 2018-03-07 17:31 | HOSPPROG ---
Hospitalist Progress Note Assessment/Plan: DIAGNOSES: * Acute Systolic CHF * Non Sust VT * New onset A Flutter, rapid V rate -cardioverted 03/04 * Mod to Severe MR * Acute Kidney Injury * hypoxemia, worse at night, ? if sleep apnea * Developmental Delay -sister is POA and helps in decision making Seen by me today on hospitalist rounds as well as multidisc rounds I have reviewed in detail today with Tyler Valente PROPAGATION WORKER card Unclear if return to NSR will lead to improvement in EF or valve fxn but it has not so far. With new cardiomyopathy, severe, and vasc risks need to rule out CAD as cause. Plans: -continue diuresis -follow renal fxn closely -plan angiography, likely nest day or two -on lovenox bridge off oral anticoag for time being -increased b lizzie -continue to follow noctural resp/Oxygenation; may need outpt sleep study SUBJECTIVE: feels better overall not sob no pain OBJECTGIVE: Vitals: stable without fever Property Management Intern: remains in NSR but did have a fairly long NonSust VT overnight exam: alert relaxed skin warm dry + jvd lungs diminished but clear heart regular abd soft legs still some edema Lab data: creat up slightly at 1.5, BUN stable, K 4.2 Objective: Vital Signs Temp Pulse Resp BP Pulse Ox 36.4 C 84 18 113/81 H 96 03/07/18 11:06 03/07/18 16:49 03/07/18 16:49 03/07/18 11:06 03/07/18 16:49 Laboratory Results 03/04/18 04:53 03/07/18 04:46 03/06/18 03/07/18 03/08/18 06:59 06:59 06:59 Intake Total 2750 1680 1400 Output Total 500 350 Balance 2750 1180 1050 - Time Spent With Patient Time Spent with Patient: greater than 35 minutes Time Spent with Patient: Greater than 35 minutes spent on this patients care, greater than 50% of time spent counseling, educating, and coordinating care regarding the above mentioned plan. ICD10 Worksheet Patient Problems: Problems Problem Status Onset Atrial flutter Acute Congestive heart failure (CHF) Acute
[2018-03-07] MEDS: ATORVASTATIN CALCIUM 20 MG TAB PO SCH (21:31)
[2018-03-08] MEDS: ALBUTEROL 60 PUFFS/8 GM MDI IH SCH ×6 (01:39→21:05)
[2018-03-08] MEDS: LEVOTHYROXINE 50 MCG TAB PO SCH (03:50)
[2018-03-08 05:01] LABS: PLATELET COUNT 199 10^3/uL (150-400)
[2018-03-08 05:04] LABS: INR 1.37 (0.83-1.16)
[2018-03-08] MEDS ORDERED: DIAZEPAM 5 MG TAB PO ONE ×2 (06:00→10:15)
[2018-03-08] MEDS ORDERED: FAMOTIDINE 20 MG TAB PO ONE ×2 (06:00→10:15)
[2018-03-08] MEDS ORDERED: NS 1,000 ML IV ONE (06:00)
[2018-03-08] MEDS ORDERED: diphenhydrAMINE 25 MG CAP PO ONE ×2 (06:00→10:15)
[2018-03-08] MEDS ORDERED: ASPIRIN EC 325 MG TAB PO ONE ×2 (06:00→10:15)
[2018-03-08] MEDS: CHOLECALCIFEROL VIT D3 1,000 UNITS TAB PO SCH (09:44)
[2018-03-08] MEDS: SENNOSIDES/DOCUSATE SODIUM TAB PO SCH ×2 (09:44→21:49)
[2018-03-08] MEDS: POTASSIUM CL 20 MEQ TAB PO SCH (09:45)
[2018-03-08] MEDS: METOPROLOL SUCCINATE XR 50 MG TAB PO SCH (09:45)
--- NOTE | 2018-03-08 09:47 | PDHPUP ---
History & Physical Update H&P update statement: This history and physical update is based on an assessment of the patient which was completed after admission or registration (within 24 hours), but prior to the surgery/procedure. H&P update: H&P reviewed & patient examined, no change in patient's condition since H&P completed
[2018-03-08] MEDS ORDERED: LIDOCAINE 1% 300 MG/30 ML SDV ONE (09:56)
[2018-03-08] MEDS ORDERED: fentaNYL 100 MCG/2 ML INJ ONE (09:57)
[2018-03-08] MEDS ORDERED: IOPAMIDOL (ISOVUE-370) 150 ML BTL IV ONE (09:57)
[2018-03-08] MEDS ORDERED: MIDAZOLAM 2 MG/2 ML VIAL ONE (09:57)
--- NOTE | 2018-03-08 09:58 | PDPROPOC ---
Sedation Plan of Care Sedation Plan of Care: vital signs stable, mental status noted, patient educated of risks, benefits, alternatives, patient can tolerate sedation ASA Classification: ASA 2 Planned drugs: fentanyl, midazolam Mallampati Score: Class 3 Mallampati Reference Image: Patient passed 3-3-2 rule?: Yes
[2018-03-08] MEDS ORDERED: HYDROCODONE/APAP 5/325 TAB PO PRN (11:29)
[2018-03-08] MEDS ORDERED: ATROPINE SULFATE 1 MG/10 ML SYR IVP PRN (11:29)
--- NOTE | 2018-03-08 11:45 | PDDXCAT ---
Diagnostic Cath Note - . Date: 03/08/18 Yacht Captain: Tejas Indication: other (Cardiomyopathy with severely reduced LV systolic function; severe MR; acute systolic CHF) - Procedure Access: right groin Procedure: left heart catheterization, coronary angiography, left ventriculogram - Materials Left Heart Cath size: 6F Left Heart Cath materials: standard multipack (JL4, JR4, pigtail) Right Heart Cath size: 7F Right Heart Cath materials: PWP catheter - Findings-Left Heart Catheterization LM: Normal. LAD: Minimal irregularities. LCX: Minimal irregularities. RCA: Minimal irregularities. Ramus: Minimal irregularities. EDP: 25 mmHg LVEF: 15% Wall motion: Global hypokinesis. - Findings-Right Heart Catheterization RA: 20 mmHg RV: 54/12 mmHg PA: 50/25/36 mmHg O2 sat 70.6% PAOP: 25 mmHg AO: 104/61/78 mmHg O2 sat 99.5% CO: 4.38 L/min CI: 1.82 L/min/sq mtr Complications: None Estimated blood loss: <50ml Closure method: Angioseal Assessment: 1) Nonischemic cardiomyopathy with severely reduced LV systolic function. 2) Minimal coronary ahterosclerosis; no lesions greater than 20-30%. 3) Mild to moderate pulmonary hypertension. 4) Elevated LVEDP and PCWP. Patient Problems: Problems Problem Status Onset Atrial flutter Acute Congestive heart failure (CHF) Acute
--- NOTE | 2018-03-08 12:48 | PDCARPN ---
Cardiology Progress Note Assessment/Plan: 62 y/o male with medical history of obesity, hypertension, hypothyroidism, hyperlipidemia, and developmental day. Admitted 03/03/18 for new atrial flutter, cardiomyopathy, and CHF. Nonischemic Cardiomyopathy: Severely reduced LV systolic function. Two possible etiologies- 1) Tachycardia mediated secondary to persistent atrial flutter/ RVR of unknown duration with subsequent left ventricular dilatation producing mitral regurgitation. 2) Progressive mitral regurgitation resulting in left ventricular systolic dysfunction/dilation producing MR related atrial flutter. - Will monitor longitudinally by echo. - Needs B-lizzie, JUDITH-I or ARB, loop diuretic, and aldosterone antagonist. Will build his medical regimen as BP and renal function allow. - Consideration for ICD implant if LVEF not improved after 3 months of optimally tolerated medical therapy. Acute Systolic CHF: Has not had much of a diuretic response with twice daily IV furosemide. - Consider IV furosemide drip. Persistent Atrial Flutter: Maintaining sinus rhythm after cardioversion on . - Resume Eliquis post catheterization. Mitral Regurgitation: Moderate to severe MR by echocardiography. - Will monitor longitudinally by echo. Coronary Atherosclerosis: Minimal coronary irregularities on cardiac catheterization today. Needs good secondary prevention. LDL is 80 on his current home dose of simvastatin 40 mg. - Will switch to atorvastatin 40 mg - Repeat lipids in 6-8 weeks. 03/08/18 12:43 Subjective: No complaints. Reviewed/Discussed With: family Objective: Vital Signs (8 Hrs) Temp Pulse Resp BP Pulse Ox 03/08/18 12:21 36.8 C 74 16 115/87 H 96 03/08/18 12:05 9 L 97 03/08/18 12:01 16 109/81 H 97 03/08/18 12:00 27 H 96 03/08/18 11:55 25 H 96 03/08/18 11:50 21 H 95 03/08/18 11:46 14 110/81 H 96 03/08/18 11:45 19 96 03/08/18 11:40 21 H 95 03/08/18 11:35 12 96 03/08/18 11:31 23 H 110/91 H 94 03/08/18 11:30 16 113/88 H 94 03/08/18 11:29 96 03/08/18 09:11 36.6 C 82 20 109/84 H 97 03/08/18 05:51 80 20 96 Intake/Output (24 Hrs) 03/07/18 03/08/18 03/09/18 05:59 05:59 05:59 Intake Total 1680 1600 Output Total 500 675 200 Balance 1180 925 -200 Intake: Oral (ml) 1680 1600 IV Intake (ml) 0 0 Output: Urine (ml) 500 675 200 Toilet 200 200 Urinal 500 475 Estimated Blood Loss (ml) 0 Other: Weight 124.511 kg 125.4 kg Intake Quantity Yes Sufficient Number of Voids Toilet 5 2 Urinal 1 Number of Stools Toilet 2 Result Diagrams: 03/08/18 04:00 03/08/18 04:00 - Physical Exam Constitutional: no apparent distress, obese Eyes: anicteric sclera Ears, Nose, Mouth, Throat: moist mucous membranes Cardiovascular: regular rate and rhythm, no murmurs Respiratory: clear to auscultate bilat Gastrointestinal: normoactive bowel sounds, no tenderness, no masses Skin: no rashes, other (2+ LE edema) Psychiatric: not anxious ICD10 Worksheet Patient Problems: Problems Problem Status Onset Atrial flutter Acute Congestive heart failure (CHF) Acute
--- NOTE | 2018-03-08 14:23 | ASMTCMCOM ---
CM Note CM Note Notes: Pts case discussed in tx rounds. Pt had an angiogram today. The plan remains the same. Pt will d/c with supportive family when medically stable. No therapies ordered at this time. CM available for changes. Plan: Independent Date Signed: 03/08/2018 02:22 PM Electronically Signed By:BEVERLY Matta
--- NOTE | 2018-03-08 18:07 | HOSPPROG ---
Hospitalist Progress Note Assessment/Plan: DIAGNOSES: * Acute Systolic CHF * Non Sust VT * New onset A Flutter, rapid V rate -cardioverted 03/04 * Mod to Severe MR * Acute Kidney Injury * hypoxemia, worse at night, ? if sleep apnea * Developmental Delay -sister is POA and helps in decision making Seen by me today on hospitalist rounds as well as multidisc rounds I have reviewed in detail today with Tyler Valente CONTROL OFFICER MANAGER card Unclear if return to NSR will lead to improvement in EF or valve fxn but it has not so far. No evidence of coronary disease Plans: -continue diuresis -follow renal fxn closely -resume Eliquis -continue increased b lizzie -continue to follow noctural resp/Oxygenation; may need outpt sleep study Patient had many questions today about what his physical activity should be like upon discharge. I discussed that this will depend on his abilities at the time of discharge which will be assessing over the next day or 2 here but we will discuss this with Dr. Lazaro tomorrow. SUBJECTIVE: feels better overall not sob no pain OBJECTGIVE: Vitals: stable without fever Safety Counselor: No recurrent VT exam: alert relaxed skin warm dry + jvd lungs diminished but clear heart regular abd soft legs still some edema Lab data: creat up slightly at 1.5, BUN stable, K 4.2 I reviewed cardiac catheterization findings done by Dr. Lazaro today and the patient has no more than luminal irregularities at 20%. He does have increased wedge pressure and pulmonary artery pressure 50. Objective: Vital Signs Temp Pulse Resp BP Pulse Ox 35.8 C L 79 17 123/91 H 97 03/08/18 15:23 03/08/18 16:10 03/08/18 16:10 03/08/18 15:23 03/08/18 16:10 Laboratory Results 03/08/18 04:00 03/08/18 04:00 03/07/18 03/08/18 03/09/18 06:59 06:59 06:59 Intake Total 1680 1600 480 Output Total 500 675 700 Balance 1180 925 -220 PT 17.0 SEC (12.0-15.0) H 03/08/18 04:00 INR 1.37 (0.83-1.16) H 03/08/18 04:00 - Time Spent With Patient Time Spent with Patient: greater than 35 minutes Time Spent with Patient: Greater than 35 minutes spent on this patients care, greater than 50% of time spent counseling, educating, and coordinating care regarding the above mentioned plan. ICD10 Worksheet Patient Problems: Problems Problem Status Onset Atrial flutter Acute Congestive heart failure (CHF) Acute
[2018-03-08] MEDS: ATORVASTATIN CALCIUM 20 MG TAB PO SCH (21:49)
[2018-03-08] MEDS: ACETAMINOPHEN 325 MG TAB PO PRN (21:50)
[2018-03-08] MEDS: APIXABAN 5 MG TAB PO SCH (21:50)
[2018-03-09] MEDS: ALBUTEROL 60 PUFFS/8 GM MDI IH SCH ×6 (02:13→21:44)
[2018-03-09] MEDS: LEVOTHYROXINE 50 MCG TAB PO SCH (04:01)
[2018-03-09] MEDS: APIXABAN 5 MG TAB PO SCH ×2 (10:07→20:45)
[2018-03-09] MEDS: METOPROLOL SUCCINATE XR 50 MG TAB PO SCH (10:07)
[2018-03-09] MEDS: POTASSIUM CL 20 MEQ TAB PO SCH (10:07)
[2018-03-09] MEDS: CHOLECALCIFEROL VIT D3 1,000 UNITS TAB PO SCH (10:07)
[2018-03-09] MEDS: SENNOSIDES/DOCUSATE SODIUM TAB PO SCH ×2 (10:08→20:44)
[2018-03-09] MEDS: FUROSEMIDE 100 MG in D5W 100 ML IV SCH ×2 (12:26→22:26)
--- NOTE | 2018-03-09 13:14 | PDCARPN ---
Cardiology Progress Note Assessment/Plan: 62 y/o male with medical history of obesity, hypertension, hypothyroidism, hyperlipidemia, and developmental day. Admitted 03/03/18 for new atrial flutter, cardiomyopathy, and CHF. Nonischemic Cardiomyopathy: Severely reduced LV systolic function. Two possible etiologies- 1) Tachycardia mediated secondary to persistent atrial flutter/ RVR of unknown duration with subsequent left ventricular dilatation producing mitral regurgitation. 2) Progressive mitral regurgitation resulting in left ventricular systolic dysfunction/dilation producing MR related atrial flutter. - Will monitor longitudinally by echo. - Needs B-lizzie, JUDITH-I or ARB, loop diuretic, and aldosterone antagonist. Will build his medical regimen as BP and renal function allow. - Consideration for ICD implant if LVEF not improved after 3 months of optimally tolerated medical therapy. Acute Systolic CHF: Has not had much of a diuretic response with twice daily IV furosemide; still has edema; LVEDP and PCWP were moderately elevated at cath. - IV furosemide drip @ 10 mg/hr started. Persistent Atrial Flutter: Maintaining sinus rhythm after cardioversion on . - Continue metoprolol and Eliquis. Mitral Regurgitation: Moderate to severe MR by echocardiography. - Will monitor longitudinally by echo. Coronary Atherosclerosis: Minimal coronary irregularities on cardiac catheterization 03/08. Needs good secondary prevention. LDL was 80 on simvastatin 40 mg. - Now on atorvastatin 40 mg - Repeat lipids in 6-8 weeks. 03/09/18 13:15 Subjective: No complaints. Objective: Vital Signs (8 Hrs) Temp Pulse Resp BP Pulse Ox 03/09/18 10:59 36.8 C 88 20 131/84 H 96 03/09/18 08:58 16 98 03/09/18 07:31 36.4 C 74 14 102/61 98 03/09/18 06:10 84 18 Intake/Output (24 Hrs) 03/08/18 03/09/18 03/10/18 05:59 05:59 05:59 Intake Total 1600 480 200 Output Total 675 900 Balance 925 -420 200 Intake: Oral (ml) 1600 480 200 IV Intake (ml) 0 0 Output: Urine (ml) 675 900 Toilet 200 300 Urinal 475 600 Estimated Blood Loss (ml) 0 Other: Weight 125.4 kg 126.4 kg Intake Quantity Yes Sufficient Number of Voids Toilet 2 Urinal 1 1 Number of Stools Toilet 1 Result Diagrams: 03/08/18 04:00 03/08/18 04:00 - Physical Exam Constitutional: no apparent distress, obese Eyes: anicteric sclera Ears, Nose, Mouth, Throat: moist mucous membranes Cardiovascular: regular rate and rhythm, no murmurs, no gallops Respiratory: clear to auscultate bilat Gastrointestinal: normoactive bowel sounds, no tenderness, no masses Skin: other (2+ LE edema) Neurologic: AAOx3 Psychiatric: not anxious ICD10 Worksheet Patient Problems: Problems Problem Status Onset Atrial flutter Acute Congestive heart failure (CHF) Acute
[2018-03-09] MEDS: SODIUM CL NASAL 45 ML BTL EACHNARE PRN ×2 (17:32→20:49)
--- NOTE | 2018-03-09 18:35 | HOSPPROG ---
Hospitalist Progress Note Assessment/Plan: DIAGNOSES: * Acute Systolic CHF * Non Sust VT * New onset A Flutter, rapid V rate -cardioverted 03/04 * Mod to Severe MR * moderately severe pulmonary hypertension * Acute Kidney Injury * hypoxemia, worse at night, ? if sleep apnea * Developmental Delay -sister is POA and helps in decision making Seen by me today on hospitalist rounds as well as multidisc rounds I have reviewed in detail today with Catracho Lazaro MD Unclear if return to NSR will lead to improvement in EF or valve fxn but it has not so far. Coronary disease does not appear to be contributing with stenoses no worse than 20%. Plans: -continue diuresis currently with IV Lasix drip started today -follow renal fxn closely -resume Eliquis -continue increased b lizzie -hopefully discharge in 1-2 days -will need close follow-up of his cardiac function and mitral leak. If these do not improve with treatment over time may need to be considered for mitral valve repair SUBJECTIVE: feels better overall not sob no pain OBJECTGIVE: Vitals: stable without fever Asset Administrator: No recurrent VT exam: alert relaxed skin warm dry + jvd lungs diminished but clear heart regular abd soft legs still some edema Objective: Vital Signs Temp Pulse Resp BP Pulse Ox 35.8 C L 89 16 114/84 H 93 03/09/18 15:14 03/09/18 18:15 03/09/18 18:15 03/09/18 15:14 03/09/18 18:15 Laboratory Results 03/08/18 04:00 03/08/18 04:00 03/08/18 03/09/18 03/10/18 06:59 06:59 06:59 Intake Total 6383 503 5441 Output Total 599 922 7380 Balance 925 -220 -160 PT 17.0 SEC (12.0-15.0) H 03/08/18 04:00 INR 1.37 (0.83-1.16) H 03/08/18 04:00 ICD10 Worksheet Patient Problems: Problems Problem Status Onset Atrial flutter Acute Congestive heart failure (CHF) Acute
[2018-03-09] MEDS: ATORVASTATIN CALCIUM 20 MG TAB PO SCH (20:45)
[2018-03-10] MEDS: ALBUTEROL 60 PUFFS/8 GM MDI IH SCH ×6 (02:11→21:07)
[2018-03-10] MEDS: LEVOTHYROXINE 50 MCG TAB PO SCH (06:22)
[2018-03-10] MEDS: CHOLECALCIFEROL VIT D3 1,000 UNITS TAB PO SCH (08:15)
[2018-03-10] MEDS: APIXABAN 5 MG TAB PO SCH ×2 (08:15→23:09)
[2018-03-10] MEDS: SENNOSIDES/DOCUSATE SODIUM TAB PO SCH ×2 (08:15→23:09)
[2018-03-10] MEDS: METOPROLOL SUCCINATE XR 50 MG TAB PO SCH (08:15)
[2018-03-10] MEDS: POTASSIUM CL 20 MEQ TAB PO SCH (08:15)
--- NOTE | 2018-03-10 13:08 | HOSPPROG ---
Hospitalist Progress Note Assessment/Plan: DIAGNOSES: * Acute Systolic CHF * Non Sust VT * New onset A Flutter, rapid V rate -cardioverted 03/04 * Mod to Severe MR * moderately severe pulmonary hypertension * Acute Kidney Injury * hypoxemia, worse at night, ? if sleep apnea * Developmental Delay -sister is POA and helps in decision making Seen by me today on hospitalist rounds as well as multidisc rounds Plans: -continue diuresis currently with IV Lasix drip -follow renal fxn closely -resume Eliquis -continue increased b lizzie, will need to be started on JUDITH-i -hopefully discharge in 1-2 days -will need close follow-up of his cardiac function and mitral leak. If these do not improve with treatment over time may need to be considered for mitral valve repair Objective: Vital Signs Temp Pulse Resp BP Pulse Ox 36.7 C 87 16 111/84 H 95 03/10/18 11:27 03/10/18 11:27 03/10/18 11:27 03/10/18 11:27 03/10/18 11:27 Laboratory Results 03/08/18 04:00 03/10/18 11:38 03/09/18 03/10/18 03/11/18 05:59 05:59 05:59 Intake Total 480 2652 300 Output Total 900 4500 1400 Balance -420 1848 -1100 PT 17.0 SEC (12.0-15.0) H 03/08/18 04:00 INR 1.37 (0.83-1.16) H 03/08/18 04:00 - Physical Exam Constitutional: no apparent distress Eyes: PERRL Ears, Nose, Mouth, Throat: moist mucous membranes Cardiovascular: irregularly irregular, edema Respiratory: no respiratory distress, reduced air movement Gastrointestinal: soft, non-tender abdomen Genitourinary: no bladder fullness Skin: warm Musculoskeletal: no muscle tenderness Neurologic: No AAOx3 Psychiatric: interacting appropriately ICD10 Worksheet Patient Problems: Problems Problem Status Onset Atrial flutter Acute Congestive heart failure (CHF) Acute
--- NOTE | 2018-03-10 14:18 | PDCARPN ---
Cardiology Progress Note Assessment/Plan: 62 y/o male with medical history of obesity, hypertension, hypothyroidism, hyperlipidemia, and developmental day. Admitted 03/03/18 for new atrial flutter, cardiomyopathy, and CHF. Nonischemic Cardiomyopathy: Severely reduced LV systolic function. Two possible etiologies- 1) Tachycardia mediated secondary to persistent atrial flutter/ RVR of unknown duration with subsequent left ventricular dilatation producing mitral regurgitation. 2) Progressive mitral regurgitation resulting in left ventricular systolic dysfunction/dilation producing MR related atrial flutter. - Will monitor longitudinally by echo. - Needs B-lizzie, JUDITH-I or ARB, loop diuretic, and aldosterone antagonist. Will build his medical regimen as BP and renal function allow. - Will add low dose losartan today. - Consideration for ICD implant if LVEF not improved after 3 months of optimally tolerated medical therapy. Acute Systolic CHF: I/O balance negative by 1848 cc in past 24 hr on furosemide drip; weight down 2 kg and creatinine improved. - Continue furosemide drip for at least 24 hr more. Persistent Atrial Flutter: Maintaining sinus rhythm after cardioversion on . - Continue metoprolol and Eliquis. Mitral Regurgitation: Moderate to severe MR by echocardiography. - Will monitor longitudinally by echo. Coronary Atherosclerosis: Minimal coronary irregularities on cardiac catheterization 03/08. Needs good secondary prevention. LDL was 80 on simvastatin 40 mg. - Now on atorvastatin 40 mg - Repeat lipids in 6-8 weeks. 03/10/18 14:18 Subjective: No CV complaints. Reviewed/Discussed With: multidisciplinary team Objective: Vital Signs (8 Hrs) Temp Pulse Resp BP Pulse Ox 03/10/18 13:28 86 16 96 03/10/18 11:27 36.7 C 87 16 111/84 H 95 03/10/18 08:44 86 18 91 L 03/10/18 08:00 36.7 C 87 16 136/90 H 94 Intake/Output (24 Hrs) 03/09/18 03/10/18 03/11/18 05:59 05:59 05:59 Intake Total 480 2652 300 Output Total 900 4500 1400 Balance -420 8 -1100 Intake: Oral (ml) 480 2520 300 IV Intake (ml) 0 132 Output: Urine (ml) 900 4500 1400 Incontinence 800 Toilet 231 195 5353 Urinal 600 2800 400 Estimated Blood Loss (ml) 0 Other: Weight 126.4 kg 124.4 kg Number of Voids Urinal 1 1 Number of Stools Toilet 1 Urinal 1 Result Diagrams: 03/08/18 04:00 03/10/18 11:38 - Physical Exam Constitutional: no apparent distress Eyes: anicteric sclera Ears, Nose, Mouth, Throat: moist mucous membranes Cardiovascular: regular rate and rhythm, no murmurs, no gallops Respiratory: clear to auscultate bilat Gastrointestinal: normoactive bowel sounds, no tenderness, no masses Skin: other (2-3+ edema) Psychiatric: not anxious ICD10 Worksheet Patient Problems: Problems Problem Status Onset Atrial flutter Acute Congestive heart failure (CHF) Acute
[2018-03-10] MEDS ORDERED: LOSARTAN POTASSIUM 25 MG TAB PO SCH (15:00)
[2018-03-10] MEDS ORDERED: PROTOCOL POTASSIUM 1 DOSE MISC PRN (15:59)
[2018-03-10] MEDS ORDERED: POTASSIUM CL 10 MEQ TAB PO ONE ×2 (16:16→23:23)
[2018-03-10] MEDS: ACETAMINOPHEN 325 MG TAB PO PRN (19:35)
[2018-03-10] MEDS: ATORVASTATIN CALCIUM 20 MG TAB PO SCH (23:09)
[2018-03-11] MEDS: ALBUTEROL 60 PUFFS/8 GM MDI IH SCH ×4 (02:19→14:13)
[2018-03-11] MEDS: LEVOTHYROXINE 50 MCG TAB PO SCH (05:52)
[2018-03-11] MEDS: SENNOSIDES/DOCUSATE SODIUM TAB PO SCH (08:32)
[2018-03-11] MEDS: APIXABAN 5 MG TAB PO SCH (08:32)
[2018-03-11] MEDS: CHOLECALCIFEROL VIT D3 1,000 UNITS TAB PO SCH (08:32)
[2018-03-11] MEDS: METOPROLOL SUCCINATE XR 50 MG TAB PO SCH (08:33)
[2018-03-11] MEDS: POTASSIUM CL 20 MEQ TAB PO SCH (08:33)
[2018-03-11] MEDS ORDERED: POTASSIUM CL 10 MEQ TAB PO ONE (09:26)
[2018-03-11] MEDS ORDERED: METOPROLOL SUCCINATE XR 50 MG TAB PO SCH (10:24)
[2018-03-11] MEDS ORDERED: FUROSEMIDE 40 MG TAB PO SCH (10:30)
--- NOTE | 2018-03-11 10:36 | PDCARPN ---
Cardiology Progress Note Assessment/Plan: 62 y/o male with medical history of obesity, hypertension, hypothyroidism, hyperlipidemia, and developmental day. Admitted 03/03/18 for new atrial flutter, cardiomyopathy, and CHF. Nonischemic Cardiomyopathy: Severely reduced LV systolic function. - Will monitor longitudinally by echo. - Is now on metoprolol, losartan, and furosemide; will add spironolactone as an outpatient. - Consideration for ICD implant if LVEF not improved after 3 months of optimally tolerated medical therapy. Acute Systolic CHF: I/O balance negative by 2018 cc in past 24 hr; furosemide drip and losartan were put on hold last pm due to mild hypotension; he also reported flank pain; a CT was negative for evidence of RP bleed or groin hematoma. Creatinine 1.0 and K 3.6 today. - Switch to PO furosemide 40 mg QD (Twice his prior home dose). - Decrease metoprolol succinate to 25 mg QD. - Resume losartan 25 mg QD. Persistent Atrial Flutter: Maintaining sinus rhythm after cardioversion on . - Continue metoprolol and Eliquis. Mitral Regurgitation: Moderate to severe MR by echocardiography. - Will monitor longitudinally by echo. Coronary Atherosclerosis: Minimal coronary irregularities on cardiac catheterization 03/08. Needs good secondary prevention. LDL was 80 on simvastatin 40 mg. - Now on atorvastatin 40 mg - Repeat lipids in 6-8 weeks. Disposition: Stable for discharge at this point. - My nurse has been sent a message via our office EMR the patient to arrange a f /u appt with me in the near future. 03/11/18 10:37 Subjective: No CV complaints. Reviewed/Discussed With: hospitalist Objective: Vital Signs (8 Hrs) Temp Pulse Resp BP Pulse Ox 03/11/18 09:37 86 19 95 03/11/18 07:28 36.5 C 78 18 124/88 H 95 03/11/18 06:05 71 14 95 03/11/18 04:30 36.4 C 82 17 125/85 H 96 Intake/Output (24 Hrs) 03/10/18 03/11/18 03/12/18 05:59 05:59 05:59 Intake Total 2652 1782 Output Total 4500 3800 Balance -1847 Intake: Oral (ml) 2520 1650 IV Intake (ml) 132 IV Infused (ml) 132 Furosemide 100 mg In D5w 132 100 ml @ 10 MG/HR 11 mls/ hr IV CONT [facility] Rx#: [id number] Output: Urine (ml) 4500 3800 Incontinence 800 Toilet 900 3400 Urinal 2800 400 Other: Weight 124.4 kg 122.787 kg Number of Voids Toilet 1 Urinal 1 14 Number of Stools Urinal 1 Result Diagrams: 03/10/18 20:05 03/11/18 04:03 - Physical Exam Constitutional: no apparent distress Eyes: anicteric sclera Ears, Nose, Mouth, Throat: moist mucous membranes Cardiovascular: regular rate and rhythm, no murmurs, no gallops Respiratory: clear to auscultate bilat Gastrointestinal: normoactive bowel sounds, no tenderness, no masses Skin: other (2+ edema; improved) Psychiatric: not anxious ICD10 Worksheet Patient Problems: Problems Problem Status Onset Atrial flutter Acute Congestive heart failure (CHF) Acute
[2018-03-11 11:15] VITALS: BP 130/92
--- NOTE | 2018-03-11 13:53 | PDDCSUM ---
Discharge Summary Discharge Summary: Admission Date: 03/03/2018 Discharge Date: 03/11/2018 Consults: Cardiology Followup: Cardiology Hospital Course Problem List: DIAGNOSES: * Acute Systolic CHF - Was grossly volume overloaded, was on Lasix gtt which has been converted to PO Lasix 40 mg qd * Non Sust VT - Continue Metoprolol dose decreased to 25 mg BID * New onset A Flutter, rapid V rate -cardioverted 03/04, continue on Elaquis * Mod to Severe MR -will closely follow-up with cardiology for his cardiac function and mitral leak. If these do not improve with treatment over time may need to be considered for mitral valve repair * moderately severe pulmonary hypertension * Acute Kidney Injury - Creatinine back to baseline at 1.0 with diuresis * hypoxemia, worse at night, ? if sleep apnea - Should have sleep study done as OP * Developmental Delay -sister is POA and helps in decision making Time spent on discharge was >35 minutes with >50% spent on patient education and counseling
== END 2018-03-11 15:15 | disposition home or self-care (01) | DRG 287 ==
LOC: F2W 14:35 → OBSVTOIN 16:17
PROVIDERS: ADMIT Student in an Organized Health Care Education/Training Program; ATTEND Student in an Organized Health Care Education/Training Program
PROC: B246ZZ4 Ultrasonography of Right and Left Heart, Transesophageal (ICD-10-PCS; 2018-03-04)
PROC: 5A2204Z Restoration of Cardiac Rhythm, Single (ICD-10-PCS; 2018-03-04)
PROC: 4A023N8 Measurement of Cardiac Sampling and Pressure, Bilateral, Percutaneous Approach (ICD-10-PCS; principal; 2018-03-08 11:29)
PROC: B2151ZZ Fluoroscopy of Left Heart using Low Osmolar Contrast (ICD-10-PCS; principal; 2018-03-08 11:29)
PROC: B2111ZZ Fluoroscopy of Multiple Coronary Arteries using Low Osmolar Contrast (ICD-10-PCS; principal; 2018-03-08 11:29)
DX: I11.0 Hypertensive heart disease with heart failure (principal); I50.21 Acute systolic (congestive) heart failure; N17.9 Acute kidney failure, unspecified; I34.0 Nonrheumatic mitral (valve) insufficiency; I47.2 Ventricular tachycardia; R09.02 Hypoxemia; I48.3 Typical atrial flutter; E03.9 Hypothyroidism, unspecified; G31.84 Mild cognitive impairment of uncertain or unknown etiology; J45.909 Unspecified asthma, uncomplicated; E78.5 Hyperlipidemia, unspecified
CPT/HCPCS: 84484-PO; 96374; C1760; J1644; J1650; J1940; J2250; J2704; J3010; Q9967